=== PATIENT | male | born 1975 | race Caucasian/White ===

== ENCOUNTER 2018-06-17 11:05 | Emergency (ER) | payer MEDICAID ==
[~2018-06-17] VITALS: Ht 185.4 cm; Wt 95.3 kg
[2018-06-17 11:13] VITALS: BP 146/84
== END 2018-06-17 12:27 ==
LOC: ER 11:20
DX: S00.12XA Contusion of left eyelid and periocular area, initial encounter (principal); Y04.0XXA Assault by unarmed brawl or fight, initial encounter; Y93.89 Activity, other specified; Y92.89 Other specified places as the place of occurrence of the external cause; Y99.8 Other external cause status
CPT/HCPCS: 70450-TC; 70486-TC